=== PATIENT | male | born 1965 | race Caucasian/White ===

== ENCOUNTER 2018-08-20 13:15 | Day surgery (SDC) | payer OTHER ==
[~2018-08-20] VITALS: Ht 188 cm; Wt 116.3 kg
--- NOTE | 2018-08-20 13:57 | NUR ---
08/20/18 1357 Nehf,Dena R ATTEMPTED IV IN RT HAND AND WOUYLD NOT THREAD. PT TOLERATED WELL.
--- NOTE | 2018-08-20 15:33 | NUR ---
08/20/18 1533 Brittanie Ram GROUNDING PAD ON RIGHT FLANK
--- NOTE | 2018-08-20 16:06 | NUR ---
08/20/18 1606 Brittanie Ram LATE ENTRY---DISCUSSION WITH PATIENT AND FATHER ABOUT POSSIBLE SLEEP APNEA AND RECOMMENDED THE PATIENT FOLLOW UP WITH PCP AND ASK FOR FURTHER TESTING. THIS WAS ALL EXPLAINED TO THE PATIENT AND ALL QUESTIONS WERE ANSWERED
== END 2018-08-20 16:00 | disposition home or self-care (01) ==
LOC: ORSCSDS 13:15
PROVIDERS: Internal Medicine Gastroenterology
PROC: 0DBK8ZX Excision of Ascending Colon, Via Natural or Artificial Opening Endoscopic, Diagnostic (ICD-10-PCS; principal; 2018-08-20 14:45)
PROC: 0DBH8ZX Excision of Cecum, Via Natural or Artificial Opening Endoscopic, Diagnostic (ICD-10-PCS; principal; 2018-08-20 14:45)
DX: Z12.11 Encounter for screening for malignant neoplasm of colon (principal); D12.0 Benign neoplasm of cecum; D12.2 Benign neoplasm of ascending colon; K21.9 Gastro-esophageal reflux disease without esophagitis
CPT/HCPCS: 88305; J7120

== ENCOUNTER → 2020-10-11 | Outpatient (CLI) | payer OTHER | END | disposition home or self-care (01) | LOC: LAB 14:30 → LAB SHORT 14:30 | DX: J02.9 Acute pharyngitis, unspecified (principal) | CPT/HCPCS: 87081; 87147 ==